=== PATIENT | male | born 1985 | race Caucasian/White ===

== ENCOUNTER 2019-05-09 12:55 | Emergency (ER) | payer MEDICAID ==
[~2019-05-09] VITALS: Ht 200.7 cm; Wt 95.5 kg
[~2019-05-09 12:55] MED LIST: CLIN-97 PO
[2019-05-09 13:02] VITALS: BP 142/91
[2019-05-09] MEDS ORDERED: DOXY100C43 PO (13:09)
[2019-05-09] MEDS ORDERED: CEPH250T PO (13:09)
== END 2019-05-09 13:21 | disposition home or self-care (01) ==
LOC: ER 12:56
DX: L03.115 Cellulitis of right lower limb (principal); Z72.89 Other problems related to lifestyle; Z98.890 Other specified postprocedural states; Z79.899 Other long term (current) drug therapy
CPT/HCPCS: 99283